=== PATIENT | male | born 1975 | race Asian ===

== ENCOUNTER 2019-03-12 19:37 | Emergency (ER) | payer MEDICAID ==
[~2019-03-12] VITALS: Ht 167.6 cm; Wt 76.2 kg
[2019-03-12 23:40] VITALS: BP 121/83
== END 2019-03-13 00:06 | disposition home or self-care (01) ==
LOC: ER 19:43
DX: S23.41XA Sprain of ribs, initial encounter (principal); S20.211A Contusion of right front wall of thorax, initial encounter; D17.1 Benign lipomatous neoplasm of skin and subcutaneous tissue of trunk; W01.0XXA Fall on same level from slipping, tripping and stumbling without subsequent striking against object, initial encounter; Y93.89 Activity, other specified; Y92.814 Boat as the place of occurrence of the external cause; Y99.8 Other external cause status
CPT/HCPCS: 71101